=== PATIENT | male | born 1955 | race African-American/Black ===

== ENCOUNTER 2020-11-18 10:08 | Outpatient (RCR) | payer MEDICARE ==
[2020-11-18] MEDS ORDERED: LIDOCAINE VISC 2% SOLN 15 ML UDC ONE (12:43)
[2020-11-18] MEDS ORDERED: MUPIROCIN 2% OINT 22 GM TUBE ONE (12:43)
== END 2020-11-21 ==
LOC: WCC 10:08
PROVIDERS: ATTEND Family Medicine
DX: E11.628 Type 2 diabetes mellitus with other skin complications (principal); I87.311 Chronic venous hypertension (idiopathic) with ulcer of right lower extremity; L97.811 Non-pressure chronic ulcer of other part of right lower leg limited to breakdown of skin; I89.0 Lymphedema, not elsewhere classified; I79.8 Other disorders of arteries, arterioles and capillaries in diseases classified elsewhere; R60.9 Edema, unspecified; I50.33 Acute on chronic diastolic (congestive) heart failure; I10 Essential (primary) hypertension; J44.9 Chronic obstructive pulmonary disease, unspecified
CPT/HCPCS: 87071; 87075; 87186; 87205

== ENCOUNTER 2020-12-02 09:16 | Outpatient (RCR) | payer MEDICARE, OTHER ==
[~2020-12-02 09:16] MED LIST: LIDOCAINE/PRILOCAINE 2.5-2.5% KIT ONE; MINERAL OIL/PETROLAT/GLYCERI 6OZ BTL ONE; MUPIROCIN 2% OINT 22 GM TUBE ONE
[2020-12-02] MEDS ORDERED: LIDOCAINE VISC 2% SOLN 15 ML UDC ONE (12:59)
== END 2020-12-22 ==
LOC: WCC 09:16
PROVIDERS: ATTEND Family Medicine
DX: E11.628 Type 2 diabetes mellitus with other skin complications (principal); I87.311 Chronic venous hypertension (idiopathic) with ulcer of right lower extremity; L97.811 Non-pressure chronic ulcer of other part of right lower leg limited to breakdown of skin; I89.0 Lymphedema, not elsewhere classified; I79.8 Other disorders of arteries, arterioles and capillaries in diseases classified elsewhere; R60.9 Edema, unspecified; I50.33 Acute on chronic diastolic (congestive) heart failure; I10 Essential (primary) hypertension; J44.9 Chronic obstructive pulmonary disease, unspecified; B96.89 Other specified bacterial agents as the cause of diseases classified elsewhere

== ENCOUNTER 2021-01-13 09:51 | Outpatient (RCR) | payer MEDICARE | END 2021-01-21 | LOC: WCC 09:51 | PROVIDERS: ATTEND Family Medicine | DX: E11.628 Type 2 diabetes mellitus with other skin complications (principal); L97.811 Non-pressure chronic ulcer of other part of right lower leg limited to breakdown of skin; I87.311 Chronic venous hypertension (idiopathic) with ulcer of right lower extremity; I89.0 Lymphedema, not elsewhere classified; I79.8 Other disorders of arteries, arterioles and capillaries in diseases classified elsewhere; R60.9 Edema, unspecified; I10 Essential (primary) hypertension; I50.33 Acute on chronic diastolic (congestive) heart failure; J44.9 Chronic obstructive pulmonary disease, unspecified; B96.89 Other specified bacterial agents as the cause of diseases classified elsewhere ==

== ENCOUNTER 2021-02-17 09:07 | Outpatient (RCR) | payer MEDICARE, OTHER ==
[~2021-02-17 09:07] MED LIST changes: +LIDOCAINE VISC 2% SOLN 15 ML UDC ONE; -LIDOCAINE/PRILOCAINE 2.5-2.5% KIT ONE; -MUPIROCIN 2% OINT 22 GM TUBE ONE
== END 2021-02-21 ==
LOC: WCC 09:07
PROVIDERS: ATTEND Family Medicine
DX: E11.628 Type 2 diabetes mellitus with other skin complications (principal); L97.811 Non-pressure chronic ulcer of other part of right lower leg limited to breakdown of skin; I87.311 Chronic venous hypertension (idiopathic) with ulcer of right lower extremity; I89.0 Lymphedema, not elsewhere classified; I79.8 Other disorders of arteries, arterioles and capillaries in diseases classified elsewhere; R60.9 Edema, unspecified; I10 Essential (primary) hypertension; J44.9 Chronic obstructive pulmonary disease, unspecified; I50.33 Acute on chronic diastolic (congestive) heart failure; B96.89 Other specified bacterial agents as the cause of diseases classified elsewhere
CPT/HCPCS: 36415; 82948